=== PATIENT | female | born 1990 | race Caucasian/White ===

== ENCOUNTER 2021-04-18 12:29 | Emergency (ER) | payer MEDICAID | END 2021-04-18 14:13 | disposition left against medical advice (07) | LOC: ER 12:31 | DX: N39.0 Urinary tract infection, site not specified (principal); Z53.21 Procedure and treatment not carried out due to patient leaving prior to being seen by health care provider ==

== ENCOUNTER 2021-04-20 11:35 | Emergency (ER) | payer MEDICAID ==
[~2021-04-20] VITALS: Ht 157.5 cm; Wt 60.0 kg
[2021-04-20 11:53] VITALS: BP 108/77
[2021-04-20 12:54] LABS: BASOPHILS % (AUTO) 0.6 % (0-1); EOSINOPHILS # (AUTO) 0.1 X10'3 (0-0.9); EOSINOPHILS % (AUTO) 2.3 % (0-6); HEMATOCRIT 48.8 % (35.0-45.0); HEMOGLOBIN 16.4 g/dl (12.0-16.0); LYMPHOCYTES # (AUTO) 1.9 X10'3 (1.1-4.8); LYMPHOCYTES % (AUTO) 49.8 % (21-51); MEAN CORPUSCULAR HEMOGLOBIN 30.1 PG (27.0-31.0); MEAN CORPUSCULAR HGB CONC 33.6 g/dL (33.0-36.5); MEAN CORPUSCULAR VOLUME 89.8 FL (78-98); MEAN PLATELET VOLUME 7.5 FL (7.4-10.4); MONOCYTES # (AUTO) 0.5 X10'3 (0-0.9); MONOCYTES % (AUTO) 13.1 % (2-12); NEUTROPHILS # (AUTO) 1.3 X10'3 (1.8-7.7); NEUTROPHILS % (AUTO) 34.2 % (42-75); PLATELET COUNT 360 X10'3 (140-440); RED BLOOD COUNT 5.43 X10'6 (4.20-5.60); RED CELL DISTRIBUTION WIDTH 14.1 % (11.5-14.5); WHITE BLOOD COUNT 3.9 X10'3 (4.5-11.0)
[2021-04-20 13:09] LABS: ALANINE AMINOTRANSFERASE 23 U/L (12-78); ALBUMIN 3.8 G/DL (3.4-5.0); ALKALINE PHOSPHATASE 101 IU/L (46-116); ANION GAP 11 (8-16); ASPARTATE AMINO TRANSFERASE 16 U/L (10-37); BILIRUBIN,TOTAL 0.2 MG/DL (0.1-1.0); BLOOD UREA NITROGEN 10 MG/DL (7-18); BUN/CREATININE RATIO 12.3 (6.6-38.0); CALCIUM 8.8 MG/DL (8.5-10.1); CHLORIDE 109 MMOL/L (99-107); CREATININE 0.81 MG/DL (0.40-0.90); GLUCOSE 97 MG/DL (70-104); POTASSIUM 3.7 MMOL/L (3.5-5.1); SODIUM 141 MMOL/L (135-145); TOTAL CARBON DIOXIDE 21.1 MMOL/L (24-32); TOTAL PROTEIN 7.7 G/DL (6.4-8.2); eGFR 82 ML/MIN
[2021-04-20] MEDS ORDERED: ALBU6.7H9 INH (14:04)
[2021-04-20] MEDS ORDERED: DEXA6TAB PO (14:04)
== END 2021-04-20 14:27 | disposition home or self-care (01) ==
LOC: ER 11:36
DX: U07.1 COVID-19 (principal); R05 Cough; R06.02 Shortness of breath; R50.9 Fever, unspecified; F17.200 Nicotine dependence, unspecified, uncomplicated; Z87.440 Personal history of urinary (tract) infections; Z88.0 Allergy status to penicillin; Z88.2 Allergy status to sulfonamides; Z79.899 Other long term (current) drug therapy
CPT/HCPCS: 36415; 71045; 80053; 85025; 87635; 99284; C9803

== ENCOUNTER 2021-04-23 08:48 | Emergency (ER) | payer MEDICAID ==
[~2021-04-23] VITALS: Ht 157.5 cm; Wt 60.0 kg
[~2021-04-23 08:48] MED LIST: ALBU6.7H9 INH; DEXA6TAB PO
[2021-04-23] MEDS ORDERED: normal saline 1000ML IV soln IVB ONE ×2 (09:10→12:00)
[2021-04-23] MEDS ORDERED: ondansetron/PF 4mg/2ml inj IV ONE (09:20)
[2021-04-23 10:22] LABS: BASOPHILS % (AUTO) 0.4 % (0-1); EOSINOPHILS # (AUTO) 0.1 X10'3 (0-0.9); EOSINOPHILS % (AUTO) 2.3 % (0-6); HEMATOCRIT 48.4 % (35.0-45.0); LYMPHOCYTES # (AUTO) 1.7 X10'3 (1.1-4.8); LYMPHOCYTES % (AUTO) 25.8 % (21-51); MEAN CORPUSCULAR HEMOGLOBIN 30.1 PG (27.0-31.0); MEAN CORPUSCULAR VOLUME 91.2 FL (78-98); MEAN PLATELET VOLUME 7.7 FL (7.4-10.4); MONOCYTES # (AUTO) 0.6 X10'3 (0-0.9); NEUTROPHILS % (AUTO) 62.5 % (42-75); PLATELET COUNT 316 X10'3 (140-440); RED BLOOD COUNT 5.31 X10'6 (4.20-5.60); RED CELL DISTRIBUTION WIDTH 14.4 % (11.5-14.5); WHITE BLOOD COUNT 6.4 X10'3 (4.5-11.0)
[2021-04-23 10:28] LABS: ALANINE AMINOTRANSFERASE 27 U/L (12-78); ALBUMIN 3.8 G/DL (3.4-5.0); ALBUMIN/GLOBULIN RATIO 1.1 (1.1-1.5); ALKALINE PHOSPHATASE 92 IU/L (46-116); ANION GAP 10 (8-16); ASPARTATE AMINO TRANSFERASE 19 U/L (10-37); BILIRUBIN,TOTAL 0.4 MG/DL (0.1-1.0); BLOOD UREA NITROGEN 13 MG/DL (7-18); BUN/CREATININE RATIO 17.6 (6.6-38.0); CALCIUM 8.5 MG/DL (8.5-10.1); CHLORIDE 109 MMOL/L (99-107); CREATININE 0.74 MG/DL (0.40-0.90); FERRITIN 58 NG/ML (8-252); GLUCOSE 93 MG/DL (70-104); LACTATE DEHYDROGENASE 146 U/L (81-234); MAGNESIUM 2.3 MG/DL (1.5-2.4); POTASSIUM 4.1 MMOL/L (3.5-5.1); SODIUM 140 MMOL/L (135-145); TOTAL CARBON DIOXIDE 20.8 MMOL/L (24-32); TOTAL PROTEIN 7.4 G/DL (6.4-8.2); eGFR > 90 ML/MIN
[2021-04-23 10:42] LABS: C-REACTIVE PROTEIN < 0.05 MG/DL (0.0-0.5)
[2021-04-23 10:47] LABS: D-DIMER 0.23 MG/L FEU (0-0.50)
[2021-04-23 11:08] LABS: HCG SERUM QL NEGATIVE
[2021-04-23] MEDS ORDERED: TETanus/Pertussis (Acell)/Diphther VAC/PF (Tdap-Adult) 0.5ml syringe IMVAC ONE (11:30)
--- NOTE | 2021-04-23 11:32 | NUR ---
Per TON Mustafa, med not needed for this pt.
[2021-04-23] MEDS ORDERED: iohexol 300mg/ml 100ml inj. ONE (11:37)
[2021-04-23] MEDS ORDERED: metoclopramide 5 mg/ml inj IV ONE (12:00)
--- NOTE | 2021-04-23 12:02 | NUR ---
Discussed pt's nausea and c/o "stomach cramping" w/ PA Good; new order received for Reglan w/ Ravenyl to follow if not effective.
[2021-04-23 12:06] LABS: CLARITY,URINE SLIGHTLY CLOUDY (Clear); COLOR,URINE YELLOW (Yellow); GLUCOSE, URINE NEGATIVE (Neg); KETONES,URINE NEGATIVE (Neg); LEUKOCYTE ESTERASE ,URINE NEGATIVE (Neg); NITRITES, URINE NEGATIVE (Neg); OCCULT BLOOD,URINE NEGATIVE (Neg); PROTEIN,URINE NEGATIVE (Neg); UA COLLECTION TYPE VOIDED; UROBILINOGEN,URINE 0.2 E.U/dL (0.2-1.0)
[2021-04-23 12:18] LABS: MUCUS STRANDS MODERATE /LPF (Neg); SQUAMOUS EPITHELIAL CELL,UR MANY /LPF (FEW)
[2021-04-23 12:19] LABS: BACTERIA,URINE FEW /HPF (Neg); RBC,URINE 0-2 /HPF (0-2); WBC,URINE 0-4 /HPF (0-4); YEAST FEW /HPF (NEGATIVE)
[2021-04-23] MEDS ORDERED: ketorolac trometh. 30mg/ml inj. IV ONE (13:05)
[2021-04-23] MEDS ORDERED: diphenhydrAMINE 25mg capsule PO ONE (13:05)
--- NOTE | 2021-04-23 13:05 | NUR ---
pT GAVE VERBAL CONSENT TO UDATE Jeny ON HER STATUS WHICH WAS PROVIDED.
[2021-04-23] MEDS ORDERED: dicyclomine 10 MG capsule PO ONE (13:15)
[2021-04-23] MEDS ORDERED: LORazepam 2 mg/ml vial IV ONE (13:25)
[2021-04-23 14:40] VITALS: BP 124/70
== END 2021-04-23 14:41 | disposition home or self-care (01) ==
LOC: ER 08:50
DX: U07.1 COVID-19 (principal); R10.84 Generalized abdominal pain; B34.9 Viral infection, unspecified; I96 Gangrene, not elsewhere classified; R19.7 Diarrhea, unspecified; R50.9 Fever, unspecified; R06.02 Shortness of breath; R05 Cough; R11.2 Nausea with vomiting, unspecified; Z87.440 Personal history of urinary (tract) infections; Z98.51 Tubal ligation status; Z72.89 Other problems related to lifestyle; Z88.0 Allergy status to penicillin; Z88.2 Allergy status to sulfonamides; Z79.899 Other long term (current) drug therapy
CPT/HCPCS: 36415; 71045; 74177; 80053; 81001; 82728; 83605; 83615; 83735; 84145; 84484; 84703; 85025; 85379; 85384; 86140; 93005; 96361; 96374; 96375; 99285; J1885; J2060; J2405; J2765; J7030; Q9967

== ENCOUNTER 2021-04-29 11:49 | Emergency (ER) | payer MEDICAID ==
[~2021-04-29] VITALS: Ht 154.9 cm; Wt 59.1 kg
[2021-04-29] MEDS ORDERED: acetaminophen 325mg tablet PO STA (12:32)
[2021-04-29] MEDS ORDERED: normal saline 1000ML IV soln IV ONE (12:35)
[2021-04-29 12:55] LABS: BASOPHILS # (AUTO) 0.1 X10'3 (0-0.2); BASOPHILS % (AUTO) 0.6 % (0-1); EOSINOPHILS # (AUTO) 0.1 X10'3 (0-0.9); EOSINOPHILS % (AUTO) 0.8 % (0-6); HEMATOCRIT 47.6 % (35.0-45.0); HEMOGLOBIN 15.9 g/dl (12.0-16.0); LYMPHOCYTES # (AUTO) 2.6 X10'3 (1.1-4.8); MEAN CORPUSCULAR HEMOGLOBIN 30.1 PG (27.0-31.0); MEAN CORPUSCULAR HGB CONC 33.5 g/dL (33.0-36.5); MEAN CORPUSCULAR VOLUME 89.9 FL (78-98); MEAN PLATELET VOLUME 7.2 FL (7.4-10.4); MONOCYTES # (AUTO) 1.3 X10'3 (0-0.9); MONOCYTES % (AUTO) 10.2 % (2-12); NEUTROPHILS # (AUTO) 8.4 X10'3 (1.8-7.7); NEUTROPHILS % (AUTO) 67.4 % (42-75); PLATELET COUNT 387 X10'3 (140-440); RED CELL DISTRIBUTION WIDTH 14.2 % (11.5-14.5); WHITE BLOOD COUNT 12.5 X10'3 (4.5-11.0)
[2021-04-29 13:12] LABS: ALANINE AMINOTRANSFERASE 19 U/L (12-78); ALBUMIN 3.7 G/DL (3.4-5.0); ALBUMIN/GLOBULIN RATIO 0.9 (1.1-1.5); ALKALINE PHOSPHATASE 96 IU/L (46-116); ANION GAP 15 (8-16); ASPARTATE AMINO TRANSFERASE 13 U/L (10-37); BILIRUBIN,TOTAL 0.1 MG/DL (0.1-1.0); BLOOD UREA NITROGEN 16 MG/DL (7-18); BUN/CREATININE RATIO 23.9 (6.6-38.0); CALCIUM 9.4 MG/DL (8.5-10.1); CHLORIDE 106 MMOL/L (99-107); CREATININE 0.67 MG/DL (0.40-0.90); GLUCOSE 123 MG/DL (70-104); POTASSIUM 4.1 MMOL/L (3.5-5.1); SODIUM 142 MMOL/L (135-145); TOTAL CARBON DIOXIDE 21.4 MMOL/L (24-32); TOTAL PROTEIN 7.8 G/DL (6.4-8.2); eGFR > 90 ML/MIN
[2021-04-29] MEDS ORDERED: dexamethasone sod phosphate 10mg/ml inj IV STA (13:44)
[2021-04-29] MEDS ORDERED: TRAZ-251 PO (14:01)
[2021-04-29 15:32] VITALS: BP 121/73
--- NOTE | 2021-04-29 15:33 | NUR ---
PT AMB TO BATHROOM TO VOID. DC PAPERWORK GIVEN TO PT WITH RX.
== END 2021-04-29 15:38 | disposition home or self-care (01) ==
LOC: ER 11:50
DX: U07.1 COVID-19 (principal); G47.00 Insomnia, unspecified; R05 Cough; R50.9 Fever, unspecified; R19.7 Diarrhea, unspecified; R53.83 Other fatigue; R42 Dizziness and giddiness; R06.02 Shortness of breath; Z87.440 Personal history of urinary (tract) infections; Z98.51 Tubal ligation status; Z72.89 Other problems related to lifestyle; Z88.0 Allergy status to penicillin; Z88.2 Allergy status to sulfonamides; Z79.899 Other long term (current) drug therapy
CPT/HCPCS: 36415; 71045; 80053; 83605; 84145; 85025; 87040; 96374; 99284; J1100; J7030

== ENCOUNTER 2021-09-13 15:24 | Inpatient (IN) | payer MEDICAID ==
[~2021-09-13] VITALS: Ht 162.6 cm; Wt 70.0 kg
[~2021-09-13 15:24] MED LIST changes: +TRAZ-251 PO
[2021-09-13] MEDS ORDERED: diphenhydrAMINE 50 mg/ml inj IV ONE (16:00)
--- NOTE | 2021-09-13 16:02 | NUR ---
CONTACTED POISON CONTROL WITH ORDERS FOR BENADRYL AND CONGENTIN, POSSIBLE HEAD CT, LA & CK WITH REPEAT.
--- NOTE | 2021-09-13 16:04 | NUR ---
pt with obvious jaw clenching, secretions, unable to verbalize, but following commands. Appears EPS. Dr West called to bedside. Ativan given.
[2021-09-13] MEDS ORDERED: LORazepam 2 mg/ml vial IV ONE (16:05)
[2021-09-13] MEDS ORDERED: benztropine 1 mg/ml 2ml ampule IV ONE (16:05)
[2021-09-13] MEDS ORDERED: magnesium 2GM in 50ml NS 50 ML IV ONE (16:10)
[2021-09-13 16:32] LABS: BASOPHILS # (AUTO) 0.2 X10'3 (0-0.2); BASOPHILS % (AUTO) 1.8 % (0-1); EOSINOPHILS # (AUTO) 0.2 X10'3 (0-0.9); EOSINOPHILS % (AUTO) 2.1 % (0-6); HEMATOCRIT 39.4 % (35.0-45.0); HEMOGLOBIN 13.4 g/dl (12.0-16.0); LYMPHOCYTES # (AUTO) 1.9 X10'3 (1.1-4.8); LYMPHOCYTES % (AUTO) 17.9 % (21-51); MEAN CORPUSCULAR HEMOGLOBIN 31.9 PG (27.0-31.0); MEAN CORPUSCULAR HGB CONC 34.1 g/dL (33.0-36.5); MEAN CORPUSCULAR VOLUME 93.6 FL (78-98); MEAN PLATELET VOLUME 6.8 FL (7.4-10.4); MONOCYTES # (AUTO) 0.4 X10'3 (0-0.9); NEUTROPHILS # (AUTO) 7.9 X10'3 (1.8-7.7); NEUTROPHILS % (AUTO) 74.2 % (42-75); PLATELET COUNT 327 X10'3 (140-440); RED BLOOD COUNT 4.21 X10'6 (4.20-5.60); RED CELL DISTRIBUTION WIDTH 13.4 % (11.5-14.5); WHITE BLOOD COUNT 10.7 X10'3 (4.5-11.0)
[2021-09-13 16:43] LABS: ALBUMIN 3.5 G/DL (3.4-5.0); ANION GAP 11 (8-16); BLOOD UREA NITROGEN 14 MG/DL (7-18); BUN/CREATININE RATIO 16.7 (6.6-38.0); CALCIUM 8.2 MG/DL (8.5-10.1); CHLORIDE 110 MMOL/L (99-107); CREATINE KINASE 86 U/L (26-192); CREATININE 0.84 MG/DL (0.40-0.90); GLUCOSE 100 MG/DL (70-104); POTASSIUM 3.8 MMOL/L (3.5-5.1); SODIUM 142 MMOL/L (135-145); TOTAL CARBON DIOXIDE 21.4 MMOL/L (24-32); eGFR 79 ML/MIN
[2021-09-13 17:15] LABS: HCG SERUM QL NEGATIVE
[2021-09-13] MEDS ORDERED: ondansetron/PF 4mg/2ml inj IV ONE (17:40)
[2021-09-13 17:55] LABS: ACETAMINOPHEN < 2.0 UG/ML (10-30)
--- NOTE | 2021-09-13 18:45 | NUR ---
ASSUMED CARE OF PT FROM VIMAL OLIVER
--- NOTE | 2021-09-13 19:50 | NUR ---
FIRST CONTACT WITH PT, SHE RESTING QUIETLY IN HALLWAY WITH SEIZURE PADS IN PLACE, PT IS GCS 15, ALERT AND ORIENTED X3, RESP EVEN AND UNLABORED,SKIN P/W/D, DR WARE AT BEDSIDE TO EVAL PT.
[2021-09-13] MEDS ORDERED: ondansetron/PF 4mg/2ml inj IV PRN (20:00)
[2021-09-13] MEDS ORDERED: magnesium hydroxide 30ml (MOM) UD suspension PO PRN (20:00)
[2021-09-13] MEDS ORDERED: acetaminophen 325mg tablet PO PRN ×2 (20:00)
[2021-09-13] MEDS ORDERED: mag hydrox/Alum hydrox/simeth 30ml oral suspension PO PRN (20:00)
[2021-09-13] MEDS ORDERED: LORazepam 2 mg/ml vial IV PRN (20:05)
[2021-09-13] MEDS ORDERED: LORazepam 1 MG tablet PO PRN (20:05)
[2021-09-13] MEDS ORDERED: temazepam 15mg capsule PO PRN (21:00)
--- NOTE | 2021-09-13 21:42 | NUR ---
POISON CONTROL CALLED FOR UPDATE ON PT, THEY WILL CLOSING CASE PT IS ASYMPTOMATIC
--- NOTE | 2021-09-13 21:54 | NUR ---
PT EATING CRACKERS AND JELLO, DANNY WELL NO N/V
[2021-09-13] MEDS: heparin, porcine 5000 units/ml vial SQ SCH (22:05)
[2021-09-14] MEDS: normal saline 1000ml 1,000 ML IV SCH ×3 (00:08→11:05)
[2021-09-14] MEDS ORDERED: CLON1TAB96 PO (02:28)
[2021-09-14] MEDS ORDERED: CITA20TA28 PO (02:28)
[2021-09-14 07:17] LABS: BASOPHILS # (AUTO) 0.1 X10'3 (0-0.2); EOSINOPHILS # (AUTO) 0.2 X10'3 (0-0.9); EOSINOPHILS % (AUTO) 4.5 % (0-6); HEMATOCRIT 36.1 % (35.0-45.0); HEMOGLOBIN 12.4 g/dl (12.0-16.0); LYMPHOCYTES # (AUTO) 1.7 X10'3 (1.1-4.8); LYMPHOCYTES % (AUTO) 30.8 % (21-51); MEAN CORPUSCULAR HEMOGLOBIN 32.2 PG (27.0-31.0); MEAN CORPUSCULAR HGB CONC 34.4 g/dL (33.0-36.5); MEAN CORPUSCULAR VOLUME 93.6 FL (78-98); MEAN PLATELET VOLUME 6.9 FL (7.4-10.4); MONOCYTES # (AUTO) 0.4 X10'3 (0-0.9); MONOCYTES % (AUTO) 7.9 % (2-12); NEUTROPHILS % (AUTO) 55.8 % (42-75); PLATELET COUNT 291 X10'3 (140-440); RED BLOOD COUNT 3.86 X10'6 (4.20-5.60); RED CELL DISTRIBUTION WIDTH 13.3 % (11.5-14.5); WHITE BLOOD COUNT 5.4 X10'3 (4.5-11.0)
[2021-09-14] MEDS ORDERED: pantoprazole 40mg Tablet.DR PO SCH (07:30)
[2021-09-14 07:49] LABS: ALANINE AMINOTRANSFERASE 25 U/L (12-78); ALBUMIN 2.8 G/DL (3.4-5.0); ALBUMIN/GLOBULIN RATIO 0.9 (1.1-1.5); ALKALINE PHOSPHATASE 61 IU/L (46-116); ANION GAP 9 (8-16); ASPARTATE AMINO TRANSFERASE 15 U/L (10-37); BILIRUBIN,TOTAL 0.3 MG/DL (0.1-1.0); BLOOD UREA NITROGEN 9 MG/DL (7-18); BUN/CREATININE RATIO 14.8 (6.6-38.0); CALCIUM 7.9 MG/DL (8.5-10.1); CHLORIDE 113 MMOL/L (99-107); CREATININE 0.61 MG/DL (0.40-0.90); GLUCOSE 77 MG/DL (70-104); POTASSIUM 3.7 MMOL/L (3.5-5.1); SODIUM 143 MMOL/L (135-145); TOTAL CARBON DIOXIDE 21.2 MMOL/L (24-32); TOTAL PROTEIN 5.8 G/DL (6.4-8.2); eGFR > 90 ML/MIN
[2021-09-14] MEDS ORDERED: citalopram 20mg tablet PO SCH (08:00)
[2021-09-14 09:00] VITALS: BP 118/70
[2021-09-14] MEDS ORDERED: albuterol 2.5 MG/3 ML nebule NEB SCH (09:00)
--- NOTE | 2021-09-14 10:44 | NUR ---
Met with patient in regards to substance use and to see if patient was interested in treatment options and patient declined. Patient stated that she just had a slip up and she knows what she needs to do to stay clean.
[2021-09-14] MEDS: heparin, porcine 5000 units/ml vial SQ SCH (11:06)
--- NOTE | 2021-09-14 11:39 | NUR ---
PATIENT LEFT WITHOUT NOTIFYING ANY STAFF MEMBER. MD AISHA SOARES
[2021-09-14] MEDS ORDERED: NO HOME MEDS (17:00)
== END 2021-09-14 11:39 | disposition left against medical advice (07) | DRG 812 ==
LOC: ER 15:25 → ED HOLD 20:03 → UNDOADMOB 20:03 → OBSVTOIN 20:03
PROVIDERS: ADMIT Internal Medicine; ATTEND Internal Medicine
DX: T43.4X1A Poisoning by butyrophenone and thiothixene neuroleptics, accidental (unintentional), initial encounter (principal); R56.9 Unspecified convulsions; F15.90 Other stimulant use, unspecified, uncomplicated; F41.9 Anxiety disorder, unspecified; F43.10 Post-traumatic stress disorder, unspecified; F51.04 Psychophysiologic insomnia; Y92.89 Other specified places as the place of occurrence of the external cause; Z72.0 Tobacco use; Z87.440 Personal history of urinary (tract) infections; Z88.0 Allergy status to penicillin; Z79.899 Other long term (current) drug therapy; Z98.51 Tubal ligation status; Z88.2 Allergy status to sulfonamides
CPT/HCPCS: 36415; 70450; 80048; 80053; 80329; 82550; 83605; 84703; 85025; 93005; 96365; 96366; 96375; 99291; G0378; J0515; J1200; J1644; J2060; J3475; J7030

== ENCOUNTER 2021-09-14 12:02 | Inpatient (IN) | payer MEDICAID ==
[~2021-09-14] VITALS: Ht 157.5 cm; Wt 67.9 kg
[~2021-09-14 12:02] MED LIST changes: +CITA20TA28 PO; +CLON1TAB96 PO
[2021-09-14] MEDS ORDERED: benztropine 1 mg/ml 2ml ampule IV ONE (13:50)
[2021-09-14] MEDS ORDERED: LORazepam 2 mg/ml vial IV ONE (13:50)
--- NOTE | 2021-09-14 14:29 | NUR ---
Patient resting in [facility]. VSS.
[2021-09-14] MEDS ORDERED: levetiracetam inj 1,000 MG in normal saline 100ml IV soln 90 ML IV ONE (14:35)
[2021-09-14 14:45] LABS: BASOPHILS % (AUTO) 0.4 % (0-1); EOSINOPHILS # (AUTO) 0.1 X10'3 (0-0.9); EOSINOPHILS % (AUTO) 1.6 % (0-6); HEMATOCRIT 42.6 % (35.0-45.0); HEMOGLOBIN 14.5 g/dl (12.0-16.0); LYMPHOCYTES # (AUTO) 1.1 X10'3 (1.1-4.8); MEAN CORPUSCULAR HEMOGLOBIN 31.9 PG (27.0-31.0); MEAN CORPUSCULAR HGB CONC 33.9 g/dL (33.0-36.5); MEAN PLATELET VOLUME 6.9 FL (7.4-10.4); MONOCYTES # (AUTO) 0.4 X10'3 (0-0.9); MONOCYTES % (AUTO) 5.4 % (2-12); NEUTROPHILS % (AUTO) 78.6 % (42-75); PLATELET COUNT 303 X10'3 (140-440); RED BLOOD COUNT 4.53 X10'6 (4.20-5.60); RED CELL DISTRIBUTION WIDTH 13.2 % (11.5-14.5); WHITE BLOOD COUNT 7.6 X10'3 (4.5-11.0)
[2021-09-14 14:46] LABS: ALANINE AMINOTRANSFERASE 30 U/L (12-78); ALBUMIN 3.6 G/DL (3.4-5.0); ALKALINE PHOSPHATASE 73 IU/L (46-116); ANION GAP 12 (8-16); ASPARTATE AMINO TRANSFERASE 16 U/L (10-37); BILIRUBIN,TOTAL 0.3 MG/DL (0.1-1.0); BLOOD UREA NITROGEN 7 MG/DL (7-18); BUN/CREATININE RATIO 9.1 (6.6-38.0); CALCIUM 8.6 MG/DL (8.5-10.1); CHLORIDE 108 MMOL/L (99-107); CREATININE 0.77 MG/DL (0.40-0.90); ETHANOL < 0.010 GM/DL (0.0-0.010); GLUCOSE 100 MG/DL (70-104); SODIUM 142 MMOL/L (135-145); TOTAL CARBON DIOXIDE 22.4 MMOL/L (24-32); TOTAL PROTEIN 7.3 G/DL (6.4-8.2); eGFR 87 ML/MIN
[2021-09-14] MEDS ORDERED: magnesium 2GM in 50ml NS 50 ML IV PRN (16:15)
[2021-09-14] MEDS ORDERED: magnesium Cl slow-release 64mg tablet PO PRN (16:15)
[2021-09-14] MEDS ORDERED: ondansetron/PF 4mg/2ml inj IV PRN (16:15)
[2021-09-14] MEDS ORDERED: potassium Cl 40MEQ/1/2NS 520ml 520 ML IV PRN ×2 (16:15)
[2021-09-14] MEDS ORDERED: magnesium 4gm in 100ml NS 100 ML IV PRN (16:15)
[2021-09-14] MEDS ORDERED: NO HOME MEDS (17:00)
[2021-09-14] MEDS: K and/or MAG REPLACEMENT MC SCH (18:20)
--- NOTE | 2021-09-14 18:30 | NUR ---
ASSUMED CARE OF PT. PT IS SITTING UP EATING DINNER. SHE DENIES ANY SYMPTOMS AT PRESENT. SEIZURE PADS IN PLACE. BED LOW TO GROUND AND LOCKED IN POSITION. RELATIVE AT BEDSIDE.
[2021-09-14] MEDS: docusate sod 100mg capsule PO SCH (19:20)
[2021-09-14] MEDS: normal saline 1000ml 1,000 ML IV SCH (19:20)
[2021-09-14] MEDS ORDERED: levetiracetam inj 1,000 MG in normal saline 100ml IV soln 90 ML IV SCH (20:00)
[2021-09-14 21:03] LABS: CLARITY,URINE SLIGHTLY CLOUDY (Clear); COLOR,URINE YELLOW (Yellow); GLUCOSE, URINE NEGATIVE (Neg); KETONES,URINE 15 mg/dl (Neg); NITRITES, URINE NEGATIVE (Neg); OCCULT BLOOD,URINE NEGATIVE (Neg); PROTEIN,URINE NEGATIVE (Neg); UA COLLECTION TYPE CLN CATCH MIDSTREAM
[2021-09-14 21:04] LABS: LEUKOCYTE ESTERASE ,URINE NEGATIVE (Neg); UROBILINOGEN,URINE 0.2 E.U/dL (0.2-1.0)
[2021-09-14 21:08] LABS: URINE AMPHETAMINE SCREEN POSITIVE (Neg); URINE BARBITUATE SCREEN NEGATIVE (Neg); URINE BENZODIAZEPINES SCREEN NEGATIVE (Neg); URINE CANNABINOID SCREEN NEGATIVE (Neg); URINE COCAINE SCREEN NEGATIVE (Neg); URINE METHADONE SCREEN NEGATIVE (Neg); URINE OPIATE SCREEN NEGATIVE (Neg); URINE PHENCYCLIDINE SCREEN NEGATIVE (Neg)
[2021-09-14 21:09] LABS: BACTERIA,URINE NONE SEEN /HPF (Neg); MUCUS STRANDS FEW /LPF (Neg); RBC,URINE 0-2 /HPF (0-2); SQUAMOUS EPITHELIAL CELL,UR MANY /LPF (FEW); WBC,URINE 0-4 /HPF (0-4)
--- NOTE | 2021-09-14 21:30 | NUR ---
PT AMBULATED TO RESTROOM AND PROVIDED URINE SAMPLE
--- NOTE | 2021-09-14 22:30 | NUR ---
PT SLEEPING COMFORTABLY
[2021-09-15] MEDS: normal saline 1000ml 1,000 ML IV SCH ×3 (02:10→19:38)
[2021-09-15 03:26] LABS: BASOPHILS % (AUTO) 0.8 % (0-1); EOSINOPHILS # (AUTO) 0.3 X10'3 (0-0.9); EOSINOPHILS % (AUTO) 5.5 % (0-6); HEMATOCRIT 39.3 % (35.0-45.0); HEMOGLOBIN 13.3 g/dl (12.0-16.0); LYMPHOCYTES # (AUTO) 2.2 X10'3 (1.1-4.8); LYMPHOCYTES % (AUTO) 41.3 % (21-51); MEAN CORPUSCULAR HEMOGLOBIN 31.7 PG (27.0-31.0); MEAN CORPUSCULAR HGB CONC 33.9 g/dL (33.0-36.5); MEAN CORPUSCULAR VOLUME 93.5 FL (78-98); MEAN PLATELET VOLUME 7.1 FL (7.4-10.4); MONOCYTES # (AUTO) 0.6 X10'3 (0-0.9); MONOCYTES % (AUTO) 10.8 % (2-12); NEUTROPHILS # (AUTO) 2.2 X10'3 (1.8-7.7); NEUTROPHILS % (AUTO) 41.6 % (42-75); PLATELET COUNT 283 X10'3 (140-440); RED CELL DISTRIBUTION WIDTH 13.5 % (11.5-14.5); WHITE BLOOD COUNT 5.3 X10'3 (4.5-11.0)
[2021-09-15 03:30] LABS: ALBUMIN 3.1 G/DL (3.4-5.0); ANION GAP 8 (8-16); BLOOD UREA NITROGEN 9 MG/DL (7-18); BUN/CREATININE RATIO 12.9 (6.6-38.0); CALCIUM 8.2 MG/DL (8.5-10.1); CHLORIDE 109 MMOL/L (99-107); GLUCOSE 77 MG/DL (70-104); MAGNESIUM 2.2 MG/DL (1.5-2.4); POTASSIUM 3.4 MMOL/L (3.5-5.1); SODIUM 140 MMOL/L (135-145); TOTAL CARBON DIOXIDE 22.8 MMOL/L (24-32); eGFR > 90 ML/MIN
[2021-09-15] MEDS: LORazepam 2 mg/ml vial IV PRN ×3 (05:49→22:02)
[2021-09-15] MEDS: docusate sod 100mg capsule PO SCH ×2 (08:00→19:31)
[2021-09-15] MEDS: K and/or MAG REPLACEMENT MC SCH ×2 (08:00→19:45)
--- NOTE | 2021-09-15 10:33 | NUR ---
Patient in room ED 12. I have received report from Nell RN and had the opportunity to ask questions and assume patient care. Nell is giving the first dose of KDUR 20 Meq due to low potassium, then will bring to PCU
--- NOTE | 2021-09-15 10:34 | NUR ---
REPORT GIVEN TO MELODY PRICE, PT TO GO TO ROOM 5786
[2021-09-15] MEDS: potassium Cl 20 mEq SR tablet PO PRN ×3 (10:40→19:30)
[2021-09-15 11:00] VITALS: BP 105/60
[2021-09-15] MEDS: acetaminophen 325mg tablet PO PRN (12:57)
--- NOTE | 2021-09-15 14:19 | NUR ---
Paged Dr. Salamanca PAGER ID: [phone] MESSAGE: [facility] [id number], candice admit having cramps she started her menstrual cycle. Gave Tylenol 650 mg, cramping is still current. She is asking for ibuprofen. May she have ibuprofen? please advise Kia OLIVER [phone]
[2021-09-15 15:00] VITALS: BP 118/68
[2021-09-15 18:00] VITALS: BP 89/50
--- NOTE | 2021-09-15 18:30 | NUR ---
Patient in room PCU 3019. I have received report from Kia OLIVER and had the opportunity to ask questions and assume patient care.
--- NOTE | 2021-09-15 18:33 | NUR ---
Problems reprioritized. Patient report given, questions answered & plan of care reviewed with Marina OLIVER.
[2021-09-15 22:00] VITALS: BP 105/62
[2021-09-16] MEDS ORDERED: Melatonin 3mg tablet PO SCH (01:00)
[2021-09-16 02:00] VITALS: BP 101/57
[2021-09-16] MEDS: LORazepam 2 mg/ml vial IV PRN (04:33)
[2021-09-16] MEDS: normal saline 1000ml 1,000 ML IV SCH (04:37)
[2021-09-16] MEDS: acetaminophen 325mg tablet PO PRN (04:38)
[2021-09-16 06:00] VITALS: BP 103/59
[2021-09-16 06:01] LABS: BASOPHILS % (AUTO) 0.9 % (0-1); EOSINOPHILS # (AUTO) 0.4 X10'3 (0-0.9); EOSINOPHILS % (AUTO) 7.5 % (0-6); HEMATOCRIT 37.8 % (35.0-45.0); HEMOGLOBIN 12.8 g/dl (12.0-16.0); LYMPHOCYTES # (AUTO) 2.1 X10'3 (1.1-4.8); LYMPHOCYTES % (AUTO) 39.2 % (21-51); MEAN CORPUSCULAR HEMOGLOBIN 31.8 PG (27.0-31.0); MEAN CORPUSCULAR VOLUME 93.5 FL (78-98); MEAN PLATELET VOLUME 7.5 FL (7.4-10.4); MONOCYTES # (AUTO) 0.6 X10'3 (0-0.9); MONOCYTES % (AUTO) 10.7 % (2-12); NEUTROPHILS # (AUTO) 2.2 X10'3 (1.8-7.7); NEUTROPHILS % (AUTO) 41.7 % (42-75); PLATELET COUNT 309 X10'3 (140-440); RED BLOOD COUNT 4.04 X10'6 (4.20-5.60); RED CELL DISTRIBUTION WIDTH 13.3 % (11.5-14.5); WHITE BLOOD COUNT 5.3 X10'3 (4.5-11.0)
[2021-09-16 06:13] LABS: ALBUMIN 2.8 G/DL (3.4-5.0); ANION GAP 10 (8-16); BLOOD UREA NITROGEN 8 MG/DL (7-18); BUN/CREATININE RATIO 12.3 (6.6-38.0); CALCIUM 8.2 MG/DL (8.5-10.1); CHLORIDE 113 MMOL/L (99-107); CREATININE 0.65 MG/DL (0.40-0.90); GLUCOSE 87 MG/DL (70-104); POTASSIUM 3.9 MMOL/L (3.5-5.1); SODIUM 145 MMOL/L (135-145); TOTAL CARBON DIOXIDE 22.1 MMOL/L (24-32); eGFR > 90 ML/MIN
--- NOTE | 2021-09-16 06:35 | NUR ---
Problems reprioritized. Patient report given, questions answered & plan of care reviewed with Shama OLIVER.
--- NOTE | 2021-09-16 07:05 | NUR ---
Patient in room PCU 3019. I have received report from MELODY Gray and had the opportunity to ask questions and assume patient care.
[2021-09-16] MEDS: docusate sod 100mg capsule PO SCH (08:00)
[2021-09-16] MEDS: K and/or MAG REPLACEMENT MC SCH (08:00)
[2021-09-16] MEDS ORDERED: citalopram 20mg tablet PO SCH (10:00)
[2021-09-16] MEDS ORDERED: clonazePAM 1mg tablet PO PRN (10:00)
[2021-09-16 11:00] VITALS: BP 116/85
[2021-09-16] MEDS ORDERED: CITA-124 PO (11:49)
[2021-09-16] MEDS ORDERED: CLON1TAB12 PO (11:49)
== END 2021-09-16 12:25 | disposition home or self-care (01) | DRG 812 ==
LOC: ER 12:03 → ED HOLD 16:35 → PCU 3S 09-15 12:12
PROVIDERS: ADMIT Internal Medicine; ATTEND Internal Medicine
PROC: 4A10X4Z Monitoring of Central Nervous Electrical Activity, External Approach (ICD-10-PCS; principal; 2021-09-14)
DX: T43.4X1A Poisoning by butyrophenone and thiothixene neuroleptics, accidental (unintentional), initial encounter (principal); R56.9 Unspecified convulsions; F17.210 Nicotine dependence, cigarettes, uncomplicated; G47.00 Insomnia, unspecified; F41.9 Anxiety disorder, unspecified; F43.10 Post-traumatic stress disorder, unspecified; F60.3 Borderline personality disorder; Y92.89 Other specified places as the place of occurrence of the external cause; Z88.0 Allergy status to penicillin; Z88.2 Allergy status to sulfonamides; Z71.6 Tobacco abuse counseling; Z79.899 Other long term (current) drug therapy
CPT/HCPCS: 36415; 80048; 80053; 80305; 80320; 81001; 83735; 85025; 87081; 93005; 95816; 96365; 96375; 99285; G0378; J0515; J1953; J2060; J7030

== ENCOUNTER 2022-03-30 19:21 | Emergency (ER) | payer MEDICAID ==
[~2022-03-30] VITALS: Ht 157.5 cm; Wt 54.5 kg
[~2022-03-30 19:21] MED LIST changes: -ALBU6.7H9 INH; +CITA-124 PO; -CITA20TA28 PO; +CLON1TAB12 PO; -CLON1TAB96 PO; -DEXA6TAB PO; -TRAZ-251 PO
[2022-03-30 19:24] VITALS: BP 127/104
[2022-03-30 20:05] LABS: BASOPHILS # (AUTO) 0.1 X10'3 (0-0.2); BASOPHILS % (AUTO) 0.7 % (0-1); EOSINOPHILS # (AUTO) 0.4 X10'3 (0-0.9); EOSINOPHILS % (AUTO) 5.1 % (0-6); HEMATOCRIT 43.8 % (35.0-45.0); HEMOGLOBIN 14.7 g/dl (12.0-16.0); LYMPHOCYTES # (AUTO) 3.1 X10'3 (1.1-4.8); LYMPHOCYTES % (AUTO) 35.1 % (21-51); MEAN CORPUSCULAR HEMOGLOBIN 30.7 PG (27.0-31.0); MEAN CORPUSCULAR HGB CONC 33.6 g/dL (33.0-36.5); MEAN CORPUSCULAR VOLUME 91.4 FL (78-98); MEAN PLATELET VOLUME 7.1 FL (7.4-10.4); MONOCYTES # (AUTO) 0.6 X10'3 (0-0.9); MONOCYTES % (AUTO) 7.3 % (2-12); NEUTROPHILS # (AUTO) 4.5 X10'3 (1.8-7.7); NEUTROPHILS % (AUTO) 51.8 % (42-75); PLATELET COUNT 381 X10'3 (140-440); RED BLOOD COUNT 4.79 X10'6 (4.20-5.60); RED CELL DISTRIBUTION WIDTH 13.1 % (11.5-14.5); WHITE BLOOD COUNT 8.8 X10'3 (4.5-11.0)
[2022-03-30 20:20] LABS: ALANINE AMINOTRANSFERASE 17 U/L (12-78); ALBUMIN 3.4 G/DL (3.4-5.0); ALKALINE PHOSPHATASE 75 IU/L (46-116); ANION GAP 9 (8-16); ASPARTATE AMINO TRANSFERASE 12 U/L (10-37); BILIRUBIN,TOTAL 0.2 MG/DL (0.1-1.0); BLOOD UREA NITROGEN 16 MG/DL (7-18); CALCIUM 8.6 MG/DL (8.5-10.1); CHLORIDE 109 MMOL/L (99-107); CREATININE 0.89 MG/DL (0.40-0.90); GLUCOSE 102 MG/DL (70-104); POTASSIUM 3.7 MMOL/L (3.5-5.1); SODIUM 142 MMOL/L (135-145); TOTAL CARBON DIOXIDE 24.1 MMOL/L (24-32); TOTAL PROTEIN 6.8 G/DL (6.4-8.2); eGFR 74 ML/MIN
[2022-03-30 20:27] LABS: BETA HCG,QUANTITATIVE < 1.0 mIU/ml; LIPASE 156 U/L (73-393)
[2022-03-30] MEDS: ketorolac trometh. 30mg/ml inj. IM ONE (22:12)
[2022-03-30] MEDS: HYDROcodone/acetaminophen 10/325mg tab PO ONE (22:12)
[2022-03-30 22:43] LABS: CLARITY,URINE SLIGHTLY CLOUDY (Clear); COLOR,URINE YELLOW (Yellow); GLUCOSE, URINE NEGATIVE (Neg); KETONES,URINE NEGATIVE (Neg); LEUKOCYTE ESTERASE ,URINE NEGATIVE (Neg); NITRITES, URINE NEGATIVE (Neg); OCCULT BLOOD,URINE NEGATIVE (Neg); PH,URINE 6.5 (4.8-8.0); PROTEIN,URINE NEGATIVE (Neg); UROBILINOGEN,URINE 0.2 E.U/dL (0.2-1.0)
[2022-03-30 22:46] LABS: UA COLLECTION TYPE NON-SPECIFIED
[2022-03-30 22:49] LABS: BACTERIA,URINE FEW /HPF (Neg); MUCUS STRANDS FEW /LPF (Neg); RBC,URINE 0-2 /HPF (0-2); SQUAMOUS EPITHELIAL CELL,UR MANY /LPF (FEW); WBC,URINE 0-4 /HPF (0-4)
[2022-03-30 22:50] LABS: TRANSITIONAL EPI CELLS,URINE FEW /HPF
[2022-03-30] MEDS ORDERED: HYDR-3972 PO (23:05)
== END 2022-03-30 23:14 | disposition home or self-care (01) ==
LOC: ER 19:22
DX: R56.9 Unspecified convulsions (principal); M54.50 Low back pain, unspecified; K42.9 Umbilical hernia without obstruction or gangrene; R51.9 Headache, unspecified; R11.2 Nausea with vomiting, unspecified; Z86.69 Personal history of other diseases of the nervous system and sense organs; Z87.440 Personal history of urinary (tract) infections; Z98.51 Tubal ligation status; Z72.89 Other problems related to lifestyle; Z88.0 Allergy status to penicillin; Z88.2 Allergy status to sulfonamides; Z79.899 Other long term (current) drug therapy
CPT/HCPCS: 36415; 70450; 74176; 80053; 81001; 83690; 84702; 85025; 96372; 99284; J1885

== ENCOUNTER 2022-04-07 09:39 | Emergency (ER) | payer MEDICAID ==
[~2022-04-07] VITALS: Ht 157.5 cm; Wt 61.4 kg
[~2022-04-07 09:39] MED LIST changes: +HYDR-3972 PO
[2022-04-07 10:00] VITALS: BP 117/70
[2022-04-07] MEDS ORDERED: CEPH500C2 PO (11:09)
[2022-04-07] MEDS ORDERED: IBUP-1986 PO (11:29)
[2022-04-07] MEDS ORDERED: CYCL-394 PO (11:29)
== END 2022-04-07 11:58 | disposition home or self-care (01) ==
LOC: ER 09:40
DX: J34.0 Abscess, furuncle and carbuncle of nose (principal); M54.59 Other low back pain; W11.XXXA Fall on and from ladder, initial encounter; Y93.89 Activity, other specified; Y92.89 Other specified places as the place of occurrence of the external cause; Y99.8 Other external cause status
CPT/HCPCS: 99284

== ENCOUNTER 2022-07-29 07:14 | Emergency (ER) | payer MEDICAID ==
[~2022-07-29] VITALS: Ht 157.5 cm; Wt 56.8 kg
[~2022-07-29 07:14] MED LIST changes: -HYDR-3972 PO; +IBUP-1986 PO
[2022-07-29] MEDS ORDERED: ondansetron/PF 4mg/2ml inj IV ONE (07:25)
[2022-07-29] MEDS ORDERED: normal saline 1000ml 1,000 ML IV ONE (07:25)
[2022-07-29 08:04] VITALS: BP 129/84
[2022-07-29 09:02] LABS: BASOPHILS % (AUTO) 0.6 % (0-1); EOSINOPHILS # (AUTO) 0.3 X10'3 (0-0.9); EOSINOPHILS % (AUTO) 3.9 % (0-6); HEMATOCRIT 40.8 % (35.0-45.0); HEMOGLOBIN 13.8 g/dl (12.0-16.0); LYMPHOCYTES # (AUTO) 1.7 X10'3 (1.1-4.8); LYMPHOCYTES % (AUTO) 21.8 % (21-51); MEAN CORPUSCULAR HEMOGLOBIN 31.2 PG (27.0-31.0); MEAN CORPUSCULAR HGB CONC 33.9 g/dL (33.0-36.5); MEAN CORPUSCULAR VOLUME 92.3 FL (78-98); MEAN PLATELET VOLUME 7.2 FL (7.4-10.4); MONOCYTES # (AUTO) 0.5 X10'3 (0-0.9); MONOCYTES % (AUTO) 6.8 % (2-12); NEUTROPHILS # (AUTO) 5.2 X10'3 (1.8-7.7); NEUTROPHILS % (AUTO) 66.9 % (42-75); PLATELET COUNT 308 X10'3 (140-440); RED BLOOD COUNT 4.42 X10'6 (4.20-5.60); RED CELL DISTRIBUTION WIDTH 13.7 % (11.5-14.5); WHITE BLOOD COUNT 7.8 X10'3 (4.5-11.0)
[2022-07-29] MEDS ORDERED: metoclopramide 5 mg/ml inj IV ONE (09:25)
[2022-07-29] MEDS ORDERED: diphenhydrAMINE 50 mg/ml inj IV ONE (09:25)
[2022-07-29] MEDS ORDERED: ketorolac trometh. 30mg/ml inj. IV ONE (09:25)
[2022-07-29 09:29] LABS: ALANINE AMINOTRANSFERASE 15 U/L (12-78); ALBUMIN 3.5 G/DL (3.4-5.0); ALBUMIN/GLOBULIN RATIO 1.1 (1.1-1.5); ALKALINE PHOSPHATASE 72 IU/L (46-116); ANION GAP 10 (8-16); ASPARTATE AMINO TRANSFERASE 14 U/L (10-37); BILIRUBIN,TOTAL 0.2 MG/DL (0.1-1.0); BLOOD UREA NITROGEN 10 MG/DL (7-18); BUN/CREATININE RATIO 15.4 (6.6-38.0); CALCIUM 9.1 MG/DL (8.5-10.1); CHLORIDE 108 MMOL/L (99-107); CREATININE 0.65 MG/DL (0.40-0.90); GLUCOSE 94 MG/DL (70-104); LIPASE 122 U/L (73-393); POTASSIUM 3.7 MMOL/L (3.5-5.1); SODIUM 141 MMOL/L (135-145); TOTAL CARBON DIOXIDE 23.2 MMOL/L (24-32); TOTAL PROTEIN 6.8 G/DL (6.4-8.2); eGFR > 90 ML/MIN
--- NOTE | 2022-07-29 09:52 | NUR ---
notified dr pool that pt eloped.
== END 2022-07-29 09:54 | disposition left against medical advice (07) ==
LOC: ER 07:14
DX: R10.84 Generalized abdominal pain (principal); Z20.822 Contact with and (suspected) exposure to COVID-19; R11.2 Nausea with vomiting, unspecified; R50.9 Fever, unspecified; R10.31 Right lower quadrant pain; Z72.89 Other problems related to lifestyle; Z79.899 Other long term (current) drug therapy; Z88.0 Allergy status to penicillin; Z88.2 Allergy status to sulfonamides; Z88.8 Allergy status to other drugs, medicaments and biological substances; Z98.51 Tubal ligation status
CPT/HCPCS: 36415; 80053; 83690; 85025; 87811; 96361; 96374; 96375; 99284; J1200; J1885; J2405; J2765; J7030

== ENCOUNTER 2022-12-07 16:12 | Emergency (ER) | payer MEDICAID ==
[~2022-12-07] VITALS: Ht 157.5 cm; Wt 59.1 kg
--- NOTE | 2022-12-07 16:25 | NUR ---
Met with patient in regards to substance use and patient coming in for [facility]. Patient is going into [facility] tomorrow. I talked to Leonard he will give RX for Suboxone. I gave patient a card for [facility] to continue Suboxone. Patient has my card to call me with any questions.
[2022-12-07 16:33] VITALS: BP 116/81
[2022-12-07] MEDS ORDERED: ONDA4TAB12 PO (16:59)
[2022-12-07] MEDS ORDERED: BUPR1FIL3 SL (16:59)
== END 2022-12-07 17:31 | disposition home or self-care (01) ==
LOC: ER 16:12
DX: F11.10 Opioid abuse, uncomplicated (principal); R11.0 Nausea; Z86.69 Personal history of other diseases of the nervous system and sense organs; Z87.440 Personal history of urinary (tract) infections; Z98.51 Tubal ligation status; Z72.89 Other problems related to lifestyle; Z88.0 Allergy status to penicillin; Z88.2 Allergy status to sulfonamides; Z88.8 Allergy status to other drugs, medicaments and biological substances; Z79.899 Other long term (current) drug therapy
CPT/HCPCS: 99283

== ENCOUNTER 2023-05-03 07:56 | Emergency (ER) | payer MEDICAID ==
[~2023-05-03] VITALS: Ht 157.5 cm; Wt 68.2 kg
[~2023-05-03 07:56] MED LIST changes: +ONDA4TAB12 PO
[2023-05-03] MEDS ORDERED: LORazepam 2 mg/ml vial IV ONE (08:55)
[2023-05-03] MEDS ORDERED: diphenhydrAMINE 50 mg/ml inj IV ONE (08:55)
[2023-05-03] MEDS ORDERED: normal saline 1000ML IV soln IVB ONE (08:55)
[2023-05-03] MEDS ORDERED: metoclopramide 5 mg/ml inj IV ONE (08:55)
[2023-05-03] MEDS ORDERED: CefTRIAXone 2gm/D5W 50ml BAG 50 ML IV ONE (09:05)
[2023-05-03 09:21] LABS: CLARITY,URINE TURBID (Clear); COLOR,URINE RED (Yellow); UA COLLECTION TYPE CLN CATCH MIDSTREAM
[2023-05-03 09:32] LABS: SQUAMOUS EPITHELIAL CELL,UR MANY /LPF (FEW)
[2023-05-03 09:36] LABS: BACTERIA,URINE 2+ /HPF (Neg)
[2023-05-03 09:37] LABS: MUCUS STRANDS FEW /LPF (Neg); TRANSITIONAL EPI CELLS,URINE FEW /HPF
[2023-05-03 09:57] VITALS: BP 103/78
[2023-05-03] MEDS ORDERED: CEPH-585 PO (10:04)
[2023-05-03] MEDS ORDERED: ONDA4TAB12 PO (10:04)
== END 2023-05-03 10:34 | disposition home or self-care (01) ==
LOC: ER 07:57
DX: N39.0 Urinary tract infection, site not specified (principal); R11.2 Nausea with vomiting, unspecified; R10.9 Unspecified abdominal pain; Z88.0 Allergy status to penicillin; Z88.1 Allergy status to other antibiotic agents; Z88.8 Allergy status to other drugs, medicaments and biological substances; Z79.899 Other long term (current) drug therapy; Z72.89 Other problems related to lifestyle; Z98.51 Tubal ligation status
CPT/HCPCS: 81001; 96365; 96375; 99284; J0696; J1200; J2060; J2765; J7030; 96376

== ENCOUNTER 2023-09-22 14:11 | Emergency (ER) | payer MEDICAID ==
[~2023-09-22] VITALS: Ht 154.9 cm; Wt 70.5 kg
[~2023-09-22 14:11] MED LIST changes: +CEPH-585 PO
[2023-09-22 14:18] VITALS: TEMP 97.9
[2023-09-22 15:04] LABS: BASOPHILS # (AUTO) 0.1 X10'3 (0-0.2); EOSINOPHILS # (AUTO) 0.3 X10'3 (0-0.9); EOSINOPHILS % (AUTO) 5.4 % (0-6); HEMATOCRIT 41.9 % (35.0-45.0); HEMOGLOBIN 14.4 g/dl (12.0-16.0); LYMPHOCYTES # (AUTO) 1.9 X10'3 (1.1-4.8); LYMPHOCYTES % (AUTO) 36.2 % (21-51); MEAN CORPUSCULAR HEMOGLOBIN 32.3 PG (27.0-31.0); MEAN CORPUSCULAR HGB CONC 34.3 g/dL (33.0-36.5); MEAN PLATELET VOLUME 7.6 FL (7.4-10.4); MONOCYTES # (AUTO) 0.4 X10'3 (0-0.9); MONOCYTES % (AUTO) 7.4 % (2-12); NEUTROPHILS # (AUTO) 2.6 X10'3 (1.8-7.7); PLATELET COUNT 309 X10'3 (140-440); RED BLOOD COUNT 4.46 X10'6 (4.20-5.60); RED CELL DISTRIBUTION WIDTH 12.6 % (11.5-14.5); WHITE BLOOD COUNT 5.3 X10'3 (4.5-11.0)
[2023-09-22 15:20] LABS: ALANINE AMINOTRANSFERASE 29 U/L (12-78); ALBUMIN 4.3 G/DL (3.4-5.0); ALBUMIN/GLOBULIN RATIO 1.3 (1.1-1.5); ALKALINE PHOSPHATASE 76 IU/L (46-116); ANION GAP 10 (8-16); ASPARTATE AMINO TRANSFERASE 24 U/L (10-37); BILIRUBIN,TOTAL 0.2 MG/DL (0.1-1.0); BLOOD UREA NITROGEN 10 MG/DL (7-18); CALCIUM 9.3 MG/DL (8.5-10.1); CHLORIDE 106 MMOL/L (99-107); CREATININE 0.77 MG/DL (0.40-0.90); GLUCOSE 88 MG/DL (70-104); POTASSIUM 3.6 MMOL/L (3.5-5.1); SODIUM 142 MMOL/L (135-145); TOTAL CARBON DIOXIDE 26.5 MMOL/L (24-32); TOTAL PROTEIN 7.6 G/DL (6.4-8.2); eCRCL 78 ML/MIN; eGFR 86 ML/MIN
[2023-09-22] MEDS ORDERED: HYDR50CA PO (17:56)
[2023-09-22 18:35] VITALS: BP 119/80; PULSE 80; RESP 14; O2SAT 100
== END 2023-09-22 18:37 | disposition home or self-care (01) ==
LOC: ER 14:11
DX: F41.9 Anxiety disorder, unspecified (principal); Z98.51 Tubal ligation status; Z72.89 Other problems related to lifestyle; Z88.0 Allergy status to penicillin; Z88.2 Allergy status to sulfonamides; Z88.8 Allergy status to other drugs, medicaments and biological substances; Z79.899 Other long term (current) drug therapy
CPT/HCPCS: 36415; 71045; 80053; 83880; 84484; 85025; 93005; 99285

== ENCOUNTER 2024-01-09 16:11 | Emergency (ER) | payer MEDICAID ==
[~2024-01-09] VITALS: Ht 157.5 cm; Wt 70.5 kg
[~2024-01-09 16:11] MED LIST changes: +HYDR50CA PO
[2024-01-09 16:34] VITALS: BP 136/70; PULSE 93; RESP 18; TEMP 97.5; O2SAT 100
[2024-01-09 17:03] LABS: URINE HCG NEGATIVE (NEG)
[2024-01-09 17:31] LABS: BILIRUBIN,URINE NEGATIVE (Neg); CLARITY,URINE SLIGHTLY CLOUDY (Clear); COLOR,URINE YELLOW (Yellow); GLUCOSE, URINE NEGATIVE (Neg); KETONES,URINE NEGATIVE (Neg); LEUKOCYTE ESTERASE ,URINE NEGATIVE (Neg); NITRITES, URINE POSITIVE (Neg); OCCULT BLOOD,URINE NEGATIVE (Neg); PROTEIN,URINE NEGATIVE (Neg); UROBILINOGEN,URINE 0.2 E.U/dL (0.2-1.0)
[2024-01-09 17:38] LABS: UA COLLECTION TYPE CLN CATCH MIDSTREAM
[2024-01-09 17:40] LABS: BACTERIA,URINE 1+ /HPF (Neg); RBC,URINE NONE SEEN /HPF (0-2); SQUAMOUS EPITHELIAL CELL,UR MANY /LPF (FEW); WBC,URINE 0-4 /HPF (0-4)
[2024-01-09] MEDS ORDERED: CEFD300C3 PO (17:40)
[2024-01-09] MEDS: CefTRIAXone 1000mg IM Kit (w/lidocaine diluent) IM ONE (17:46)
== END 2024-01-09 17:56 | disposition home or self-care (01) ==
LOC: ER 16:12
DX: N39.0 Urinary tract infection, site not specified (principal); Z87.442 Personal history of urinary calculi; Z88.0 Allergy status to penicillin; Z88.2 Allergy status to sulfonamides; Z79.899 Other long term (current) drug therapy
CPT/HCPCS: 81001; 81025; 96372; 99283; J0696